=== PATIENT | female | born 1990 | race American Indian/Alaskan Native ===

== ENCOUNTER 2017-08-26 15:56 | Outpatient (CLI) | payer OTHER ==
[2017-08-26] MEDS ORDERED: KEFLEX500 MG PO (19:36)
== END 2017-08-26 21:20 | disposition home or self-care (01) ==
LOC: OBS/DEL 15:56
DX: O23.42 Unspecified infection of urinary tract in pregnancy, second trimester (principal); Z3A.20 20 weeks gestation of pregnancy

== ENCOUNTER 2017-12-25 15:14 | Outpatient (CLI) | payer OTHER ==
[~2017-12-25 15:14] MED LIST: KEFLEX500 MG PO
[2017-12-25] MEDS ORDERED: PRENATAL TABLE1 EAC2 PO (15:32)
[2017-12-25] MEDS ORDERED: FOLIC ACID1 MG PO (15:33)
== END 2017-12-25 21:19 | disposition home or self-care (01) ==
LOC: OBS/DEL 15:14 → LDR 15:16 → OBS/DEL 15:18
DX: O47.1 False labor at or after 37 completed weeks of gestation (principal); Z3A.37 37 weeks gestation of pregnancy